=== PATIENT | female | born 1990 | race Caucasian/White ===

== ENCOUNTER 2020-08-06 20:30 | Outpatient (CLI) | payer OTHER ==
[~2020-08-06] VITALS: Ht 162.6 cm; Wt 81.0 kg
[2020-08-06 20:58] VITALS: BP 120/70
[2020-08-06 21:07] LABS: MICROSCOPIC INDICATED
[2020-08-06 21:15] LABS: BASOPHILS % (AUTO) 1 % (0-1); EOSINOPHILS % (AUTO) 2 % (1-7); LYMPHOCYTES % (AUTO) 17 % (22-44); MEAN CORPUSCULAR HEMOGLOBIN 26.5 pg (27.0-34.8); MEAN CORPUSCULAR HGB CONC 32.6 g/dL (32.4-35.8); MEAN PLATELET VOLUME 10.8 fL (7.4-10.4); MONOCYTES % (AUTO) 7 % (2-9); NEUTROPHILS % (AUTO) 73 % (42-75); PLATELET COUNT 238 x10^3/uL (130-400); RED BLOOD COUNT 4.13 x10^6/uL (3.82-5.3); RED CELL DISTRIBUTION WIDTH 20.4 % (9.6-15.2)
[2020-08-06 21:19] LABS: ALANINE AMINOTRANSFERASE 75 U/L (12-78); ALBUMIN 2.4 g/dL (3.4-5.0); ANION GAP 10 mmol/L (5-15); CALCIUM 8.9 mg/dL (8.5-10.1); CHLORIDE 106 mmol/L (98-107)
[2020-08-06 21:21] LABS: ALKALINE PHOSPHATASE 172 U/L (45-117); BILIRUBIN,TOTAL 0.3 mg/dL (0.2-1.0); TOTAL PROTEIN 7.1 g/dL (6.4-8.2)
[2020-08-06 21:23] LABS: BILIRUBIN, DIRECT < 0.1 mg/dL (0.1-0.2)
[2020-08-06 21:47] LABS: MD MORPH REVIEW ONLY
[2020-08-06 21:48] LABS: ANISOCYTOSIS 1+; POLYCHROMASIA 1+
[2020-08-06 21:49] LABS: <PLATELET ESTIMATE> ADEQUATE; LARGE PLATELETS 1+
[2020-08-06 21:52] LABS: CREATININE,URINE RANDOM 30.3 mg/dL
== END 2020-08-07 00:23 | disposition home or self-care (01) ==
LOC: LDOP 20:30
PROVIDERS: ATTEND Obstetrics & Gynecology
DX: O14.93 Unspecified pre-eclampsia, third trimester (principal); Z3A.30 30 weeks gestation of pregnancy
CPT/HCPCS: 59025; 80053; 81001; 82248; 82570; 82962; 84156; 84550; 85025; 87086; 93970